=== PATIENT | female | born 1980 | race Caucasian/White ===

== ENCOUNTER 2020-10-20 15:45 | Outpatient (REF) | payer SELFPAY ==
[2020-10-22 13:27] LABS: TB Interpretation Negative (Negative); TB1 Ag minus Nil 0.09 IU/ml; TB2 Ag minus Nil 0.07 IU/mL
[2020-10-22 15:57] LABS: Hepatitis B Surface Ag Negative (Negative)
[2020-10-22 17:04] LABS: HBs Antibody, Quant >1000.0 mIU/mL (See Note); Hepatitis B Surface Ab Positive (See Note)
== END 2020-10-20 16:05 ==
LOC: LBO 15:45
PROVIDERS: Visit Provider Nurse Practitioner Family
DX: Z02.1 Encounter for pre-employment examination (principal); Z11.59 Encounter for screening for other viral diseases; Z11.1 Encounter for screening for respiratory tuberculosis
CPT/HCPCS: 36415; 86706; 87340; 86480

== ENCOUNTER 2022-03-03 18:37 | Outpatient (REF) | payer OTHER, SELFPAY ==
[2022-03-03 16:10] LABS: Calculated LDL 90 mg/dL (<100); Cholesterol 164 mg/dL (<200); HDL Cholesterol 66 mg/dL (40-60); Triglyceride 42 mg/dL (<150)
[2022-03-06 11:50] LABS: Hepatitis C Ab w Rflx HCV PCR Negative (Negative)
== END 2022-03-03 18:38 | disposition home or self-care (01) ==
LOC: NCHCN 18:37
PROVIDERS: Visit Provider Family Medicine
DX: Z13.220 Encounter for screening for lipoid disorders (principal); Z11.59 Encounter for screening for other viral diseases
CPT/HCPCS: 80061; 86803

== ENCOUNTER 2022-11-22 01:05 | Outpatient (CLI) | payer OTHER, SELFPAY ==
--- NOTE | 2022-11-22 | DI.MAMMO_ITS ---
Exam(s) MAMMO SCREENING EXAM: MAMMO SCREENING CLINICAL HISTORY: SCREENING, Z12.39, FAMILY HX BREAST CA, MOTHER FILOIDES TUMOR, Z80.3 TECHNIQUE: Mammograms were interpreted according to the usual protocol including computer analysis w Dexetra CAD system, tomosynthesis and C-view imaging. COMPARISON: None. Baseline examination. FINDINGS: The breasts are composed of heterogeneously dense fibroglandular densities, Breast Density category C . No suspicious masses or suspicious microcalcifications are seen. No skin thickening or abnormal axillary lymph nodes are seen. IMPRESSION: BI-RADS Category 1, Negative mammogram. Yearly screening mammography is recommended. Breast Density Category C, heterogeneously Dense. The mammogram demonstrates the patient's breast tissue is dense. Dense breast tissue is very common a nd is not abnormal but dense breast tissue can make it harder to find cancer on a mammogram. Also, de nse breast tissue may increase breast cancer risk. This information about the result of the mammogram report was provided to the patient to raise their awareness. Use this report when you speak with the patient about their risks for breast cancer, which includes their family history. At that time, you may recommend additional screening tests (Ultrasound or MRI) as they might be useful based on their r isk. A negative radiographic report should not delay biopsy if a dominant or clinically suspicious mass is present. Up to ten percent of cancers are not identified on mammography. A negative report may reinforce clinical impression. Adenosis and dense breasts may obscure an underlying neoplasm. False positive reports average 6 to 10%.
== END 2022-11-22 01:25 ==
PROVIDERS: Visit Provider Family Medicine
DX: Z12.31 Encounter for screening mammogram for malignant neoplasm of breast (principal); R92.8 Other abnormal and inconclusive findings on diagnostic imaging of breast
CPT/HCPCS: 77063; 77067

== ENCOUNTER 2024-03-17 16:02 | Outpatient (CLI) | payer OTHER, SELFPAY ==
--- NOTE | 2024-03-17 15:00 | DI.RAD_ITS ---
Exam(s) XR WRIST LT COMPLETE EXAM: XR WRIST LT COMPLETE CLINICAL HISTORY: l wrist pain. TECHNIQUE: 2D digital imaging was performed. COMPARISON: Prior x-rays June 2011. FINDINGS: Again noted is a volar fixation plate in the distal radius which appears stable with no evidence of f racture or loosening nor evidence of osteomyelitis. Benign bone island in the distal ulna is unchang ed. There are mild degenerative changes in the radiocarpal joint. Scaphoid and scapholunate distanc e normal. Other articulations including the 1st carpometacarpal joint appear unremarkable. IMPRESSION: Stable satisfactory appearance. DATA REPOSITORY: RADIATION DOSE DELIVERED:
== END 2024-03-17 16:03 | disposition home or self-care (01) ==
LOC: DIORS 16:03
PROVIDERS: PCP Family Medicine; Visit Provider Physician Assistant
DX: Z98.890 Other specified postprocedural states (principal); M25.532 Pain in left wrist
CPT/HCPCS: 73110

== ENCOUNTER 2024-11-04 01:40 | Outpatient (CLI) | payer OTHER, SELFPAY ==
--- NOTE | 2024-11-04 | DI.MAMMO_ITS ---
Exam(s) MAMMO SCREENING EXAM: MAMMO SCREENING CLINICAL HISTORY: Screening, Z12.31 TECHNIQUE: Bilateral full field digital CC and MLO mammographic images were obtained with 3D tomosyn thesis and utilizing computer aided detection (CAD). COMPARISON: Available for comparison. FINDINGS: Masses/Architectural Distortion: None seen. Microcalcifications: No suspicious pleomorphic-type are seen. Skin Thickening/Nipple Retraction: None. IMPRESSION: 1. No significant interval change with no specific features of malignancy noted. 2. Unless there is more urgent need, screening mammography is recommended, as per [employer] guidelines. BI-RADS Category 1 - Negative Breast Density - Category C - Heterogeneously dense Breast density category C or D implies that the patient has dense breast tissue. Dense breast tissue is very common and is not abnormal but dense breast tissue can make it harder to find cancer on a ma mmogram. Also, dense breast tissue may increase their breast cancer risk. This information about the result of the mammogram report was provided to the patient to raise their awareness. Use this report when you speak with the patient about their risks for breast cancer, which includes their family hist ory. At that time, you may recommend for more screening tests (Ultrasound or MRI) as they might be us eful based on their risk. A negative radiographic report should not delay biopsy if a dominant or clinically suspicious mass is present. Up to ten percent of cancers are not identified on mammography. A negative report may reinforce clinical impression. Adenosis and dense breasts may obscure an underlying neoplasm. False positive reports average 6 to 10%. Patient will receive a letter notifying them of these results.
== END 2024-11-04 02:00 ==
LOC: DI 01:41
PROVIDERS: PCP Family Medicine; Visit Provider Family Medicine
DX: Z12.31 Encounter for screening mammogram for malignant neoplasm of breast (principal); R92.333 Mammographic heterogeneous density, bilateral breasts
CPT/HCPCS: 77063; 77067

== ENCOUNTER 2025-07-02 16:13 | Outpatient (REF) | payer OTHER, SELFPAY ==
[2025-07-02 14:26] LABS: HCT 43.4 % (36.0-46.0); HGB 14.3 g/dL (11.2-15.7); MCH 27.8 pg (27.0-33.0); MCHC 32.9 % (32.0-36.0); MCV 84 fL (80-95); Platelet Count 185 10^3/uL (130-400); RBC 5.15 10^6/uL (3.93-5.22); RDW 12.9 % (11.7-14.6); RDW-SD 40.0 fL; WBC 9.27 10^3/uL (4.4-10.8)
[2025-07-02 14:49] LABS: ALT 25 U/L (14-59); AST 20 U/L (15-37); Albumin 4.0 g/dL (3.4-5.0); Alkaline Phosphatase 49 U/L (46-116); Anion Gap 10.8 mmol/L (3-11); BUN 17 mg/dL (7-18); Bilirubin, Total 0.4 mg/dL (0.2-1.0); CO2 26.2 mmol/L (21.0-32.0); Calcium 8.7 mg/dL (8.5-10.1); Calculated LDL 152 mg/dL (<100); Chloride 102 mmol/L (98-107); Cholesterol 231 mg/dL (<200); Estimated GFR 110.67 (mL/min/1.73m2); Glucose 86 mg/dL (74-106); HDL Cholesterol 64 mg/dL (>or=50); Potassium 3.9 mmol/L (3.5-5.1); Sodium 139 mmol/L (136-145); TSH (W/Ref FT4) 1.51 uIU/mL (0.36-3.74); Total Protein 7.7 g/dL (6.4-8.2); Triglyceride 79 mg/dL (<150)
== END 2025-07-02 16:14 | disposition home or self-care (01) ==
LOC: NCHCN 16:13
PROVIDERS: PCP Family Medicine; Visit Provider Family Medicine
DX: Z13.220 Encounter for screening for lipoid disorders (principal); R51.9 Headache, unspecified
CPT/HCPCS: 80053; 80061; 85027; 84144; 84443